=== PATIENT | male | born 1990 | race African-American/Black ===

== ENCOUNTER 2017-07-25 16:28 | Emergency (ER) | payer MEDICAID ==
[~2017-07-25] VITALS: Ht 175.3 cm; Wt 81.8 kg
[2017-07-25 16:31] VITALS: TEMP 99
[2017-07-25 17:51] LABS: BASO % 0.3 % (0.0-2.0); EOS # 0.1 (0.0-0.7); EOS % 1.4 % (0-4.0); GRAN # 6.3 (1.4-6.5); GRAN % 79.4 % (42.2-75.2); HEMATOCRIT 48.9 % (42.0-52.0); HEMOGLOBIN 15.8 g/dl (13.5-18.0); LYMPH # 0.9 (1.2-3.4); LYMPH % 11.9 % (20.0-51.0); MEAN CELL VOLUME 74 fl (80.0-100.0); MEAN CORPUSCULAR HEMOGLOBIN 24 pg (27.0-31.0); MEAN CORPUSCULAR HGB CONC 32 g/dl (33.0-37.0); MEAN PLATELET VOLUME 10.8 fl (7.4-10.4); MONO # 0.5 (0.1-0.6); MONO % 6.5 % (1.7-9.3); PLATELET COUNT 278 K/mm3 (130-400); RED BLOOD COUNT 6.58 M/mm3 (4.20-5.60)
[2017-07-25 17:53] VITALS: BP 122/71
[2017-07-25 18:06] LABS: ALBUMIN 5.2 gm/dL (3.5-5.0); BILIRUBIN,TOTAL 0.9 mg/dL (0.0-1.0); CALCIUM 9.7 mg/dL (8.4-10.2); CREATININE, serum 1.06 mg/dL (0.66-1.25); POTASSIUM 4.3 mmol/L (3.4-5.0); TOTAL PROTEIN 8.4 gm/dL (6.4-8.2)
[2017-07-25] MEDS ORDERED: ZOFRAN ODT4 MG PO (19:21)
[2017-07-25 19:32] LABS: COLLECTION METHOD CLEAN CATCH
[2017-07-25 19:36] LABS: PH 5 (5-8); URINE APPEARANCE Clear; URINE BILIRUBIN Negative (NEGATIVE); URINE BLOOD Negative (NEGATIVE); URINE COLOR Yellow; URINE GLUCOSE Negative (NEGATIVE); URINE KETONE 1+ (NEGATIVE); URINE LEUKOCYTE ESTERASE Negative (NEGATIVE); URINE NITRATE Negative (NEGATIVE); URINE PROTEIN(semi-quant) 1+ (NEGATIVE); URINE UROBILINOGEN Negative (NEGATIVE)
[2017-07-25 19:38] LABS: MUCOUS Present /lpf; URINE RBC None Seen /hpf
[2017-07-25 19:47] VITALS: PULSE 80
== END 2017-07-25 19:47 | disposition home or self-care (01) ==
LOC: COL.ER 16:28
PROVIDERS: Nurse Practitioner
DX: R19.7 Diarrhea, unspecified (principal); R11.2 Nausea with vomiting, unspecified
CPT/HCPCS: J2405; J7030

== ENCOUNTER 2019-02-03 17:31 | Emergency (ER) | payer MEDICAID ==
[~2019-02-03] VITALS: Ht 175.3 cm; Wt 81.8 kg
[~2019-02-03 17:31] MED LIST: ZOFRAN ODT4 MG PO
[2019-02-03 17:43] VITALS: BP 120/87; TEMP 99.5
[2019-02-03 19:51] LABS: HIV 1/2 Antibodies Non-Reactive; HIV-1p24 Antigen Non-Reactive
[2019-02-03 20:00] VITALS: PULSE 93
[2019-02-04 23:28] LABS: RPR (VDRL) XXX
== END 2019-02-03 20:00 | disposition home or self-care (01) ==
LOC: COL.ER 17:31
PROVIDERS: Nurse Practitioner Primary Care
DX: Z11.3 Encounter for screening for infections with a predominantly sexual mode of transmission (principal)